=== PATIENT | female | born 1990 | race Two or more races ===

== ENCOUNTER 2021-12-21 12:50 | Emergency (ER) | payer SELFPAY ==
[~2021-12-21] VITALS: Ht 175.3 cm; Wt 142.9 kg
[2021-12-21 12:51] VITALS: BP 152/103
[2021-12-21] MEDS ORDERED: CYCL-837 PO (13:19)
[2021-12-21] MEDS ORDERED: ACET-1158 PO (13:19)
[2021-12-21 15:34] LABS: Urine Bacteria FEW /hpf (None Seen); Urine Blood Negative /uL (Negative); Urine Mucus FEW (None Seen); Urine WBC 13 /hpf (0 - 5)
== END 2021-12-21 13:27 | disposition home or self-care (01) ==
LOC: ER 12:50
DX: S29.012A Strain of muscle and tendon of back wall of thorax, initial encounter (principal); E66.01 Morbid (severe) obesity due to excess calories; Z68.42 Body mass index [BMI] 45.0-49.9, adult; I10 Essential (primary) hypertension; Z91.040 Latex allergy status; X58.XXXA Exposure to other specified factors, initial encounter; Y93.89 Activity, other specified; Y92.89 Other specified places as the place of occurrence of the external cause; Y99.8 Other external cause status
CPT/HCPCS: 81001; 81025